=== PATIENT | male | born 1955 ===

== ENCOUNTER 2018-03-18 12:32 | Emergency (ER) | payer OTHER ==
--- NOTE | 2018-03-18 12:47 | ED PDOC ---
HPI: General Adult Time Seen by Provider: 03/18/18 12:47 Chief Complaint (Nursing): Abnormal Skin Integrity Chief Complaint (Provider): rash History Per: Patient Additional Complaint(s): 62 year old male presents with persistent rash secondary to bed bug infestation at home. Patient was seen at [facility] ED for same issue 4 days ago and was given rx 10 mg QD prednisone but this has not helped. He presents to this ED today with persistent rash and pruritus. Patient denies fever or chills. He states that he already switched out his mattress and washed all of his clothing. He denies any more recent exposure. PMD: Dr. Esqueda Past Medical History Reviewed: Historical Data, Nursing Documentation, Vital Signs Vital Signs: Last Vital Signs Temp 98.2 F 03/18/18 12:45 Pulse 66 03/18/18 12:45 Resp 16 03/18/18 12:45 BP 177/94 H 03/18/18 12:45 Pulse Ox 98 03/18/18 12:45 - Medical History PMH: Diabetes, HTN - Family History Family History: States: No Known Family Hx - Living Arrangements Living Arrangements: With Family - Social History Current smoker - smoking cessation education provided: No Alcohol: None Drugs: Denies - Immunization History Hx Tetanus Toxoid Vaccination: Yes - Home Medications Home Medications: Ambulatory Orders Medication Instructions Recorded Amlodipine/Valsartan/Hcthiazid 1 tab PO DAILY 07/15/17 [Exforge Hct 5 mg-25 mg-160 mg] Carvedilol [Coreg CR] 10 mg PO DAILY 07/15/17 GlipiZIDE [Glipizide] 10 mg PO DAILY 07/15/17 MetFORMIN [glucOPHAGE] 1,000 mg PO DAILY 07/15/17 Naproxen [Naprosyn] 1 tab PO BID PRN #20 tab 07/15/17 Acetaminophen with Codeine 1 tab PO Q6 PRN #12 tab 07/18/17 [Tylenol with Codeine No. 3 300 mg-30 mg] DiphenhydrAMINE [Benadryl] 25 mg PO QID #28 cap 03/13/18 Triamcinolone 0.1% [Triamcinolone 0.1 gm TP BID PRN #2 tube 03/13/18 0.1% Cream] predniSONE [Prednisone] 10 mg PO BID #10 tab 03/13/18 Loratadine [Claritin] 10 mg PO DAILY #30 tab 03/18/18 Prednisone 50 mg PO DAILY #6 tablet 03/18/18 - Allergies Allergies/Adverse Reactions: Allergies Allergy/AdvReac Type Severity Reaction Status Date / Time No Known Allergies Allergy Verified 07/18/17 09:39 Review of Systems ROS Statement: Except As Marked, All Systems Reviewed And Found Negative Constitutional: Negative for: Fever, Chills Skin: Positive for: Rash Physical Exam - Reviewed Nursing Documentation Reviewed: Yes Vital Signs Reviewed: Yes - Physical Exam Appears: Positive for: Well, Non-toxic, No Acute Distress Skin: Positive for: Normal Color, Rash (Urticarial and vesicular lesions noted to bilateral upper and lower extremities as well as torso.) Eye Exam: Positive for: Normal appearance Cardiovascular/Chest: Positive for: Regular Rate, Rhythm Respiratory: Positive for: Normal Breath Sounds. Negative for: Wheezing, Respiratory Distress Extremity: Positive for: Normal ROM Neurologic/Psych: Positive for: Alert, Oriented - ECG O2 Sat by Pulse Oximetry: 98 Pulse Ox Interpretation: Normal Medical Decision Making Medical Decision Makin62 y/o male with allergic rash Plan: IM solumedrol IM benadryl Patient given higher dose of prednisone. He was also given prescription for Claritin. Patient was advised to follow-up with primary doctor in 2-3 days. Disposition - Clinical Impression Clinical Impression: Allergic dermatitis - Patient ED Disposition Is Patient to be Admitted: No Counseled Patient/Family Regarding: Diagnosis, Need For Followup, Rx Given - Disposition Referrals: Dheeraj BOWLING,Trudy Alva PA-C [Physician Automobile Inspector] - Disposition: Routine/Home Disposition Time: 13:23 Condition: STABLE Additional Instructions: Take prescription meds as directed. Follow-up with primary doctor in 2-3 days. Prescriptions: Loratadine [Claritin] 10 mg PO DAILY #30 tab Prednisone 50 mg PO DAILY #6 tablet Instructions: Contact Dermatitis (DC) Forms: [employer] (Ecuadorean)
[2018-03-18 12:50] VITALS: BP 177/94; PULSE 66; RESP 16; TEMP 98.2; O2SAT 98
[2018-03-18] MEDS ORDERED: DiphenhydrAMINE 50 mg/ml Inj IM STA (12:57)
[2018-03-18] MEDS ORDERED: DiphenhydrAMINE 50 mg/ml Inj ONE (13:06)
== END 2018-03-18 13:39 | disposition home or self-care (01) ==
LOC: H.ER 12:32
DX: L23.9 Allergic contact dermatitis, unspecified cause (principal); I10 Essential (primary) hypertension; E11.9 Type 2 diabetes mellitus without complications; Z79.84 Long term (current) use of oral hypoglycemic drugs
CPT/HCPCS: 96372; 99282; J1200; J2930

== ENCOUNTER 2018-04-05 21:00 | Emergency (ER) | payer SELFPAY ==
[2018-04-05] MEDS ORDERED: Sodium Chloride 0.9% 1,000 ML IV STA (22:21)
--- NOTE | 2018-04-05 22:47 | ED PDOC ---
HPI: Male Pain Time Seen by Provider: 04/05/18 21:57 Chief Complaint (Nursing): Male Genitourinary Chief Complaint (Provider): Male Genitourinary History Per: Patient History/Exam Limitations: no limitations Onset/Duration Of Symptoms: Days (x1) Current Symptoms Are (Timing): Still Present Additional Complaint(s): 62 year old male presents to the ED for evaluation of increasing abdominal and back pain for the last 24 hours associated with being unable to urinate. He states a small bit of urine did come out, but it was very dark (non-bloody) and abnormal. Pt reports the pain being so severe that it hurts to lay flat, sit, or stand. Otherwise denies previous prostate problems, fever, numbness to legs, diarrhea, fecal incontinence, and rash. PMD: Dheeraj Past Medical History Reviewed: Historical Data, Nursing Documentation, Vital Signs Vital Signs: Last Vital Signs Temp 99.4 F 04/05/18 21:21 Pulse 92 H 04/05/18 21:21 Resp 22 04/05/18 21:21 BP 174/91 H 04/05/18 21:21 Pulse Ox 99 04/05/18 21:21 - Medical History PMH: CAD, Diabetes, HTN Other PMH: Myocardial infarction - Surgical History Surgical History: No Surg Hx - Family History Family History: States: Unknown Family Hx - Social History Current smoker - smoking cessation education provided: No Alcohol: None Drugs: Denies - Immunization History Hx Tetanus Toxoid Vaccination: Yes Hx Influenza Vaccination: No Hx Pneumococcal Vaccination: No - Home Medications Home Medications: Ambulatory Orders Medication Instructions Recorded MetFORMIN [glucOPHAGE] 1,000 mg PO DAILY 07/15/17 Amlodipine/Valsartan [Exforge 1 tab PO DAILY 04/07/18 10-320 mg Tablet] Carvedilol [Coreg] 25 mg PO Q12 04/07/18 Glipizide [Glipizide ER] 10 mg PO DAILY 04/07/18 - Allergies Allergies/Adverse Reactions: Allergies Allergy/AdvReac Type Severity Reaction Status Date / Time No Known Allergies Allergy Verified 04/07/18 09:05 Review of Systems ROS Statement: Except As Marked, All Systems Reviewed And Found Negative Constitutional: Negative for: Fever Gastrointestinal: Positive for: Abdominal Pain. Negative for: Diarrhea Genitourinary Male: Positive for: Other (unable to urinate). Negative for: Incontinence (fecal), Rash Musculoskeletal: Positive for: Back Pain Neurological: Negative for: Numbness (in legs) Physical Exam - Reviewed Nursing Documentation Reviewed: Yes Vital Signs Reviewed: Yes - Physical Exam Appears: Positive for: No Acute Distress Head Exam: Positive for: ATRAUMATIC, NORMOCEPHALIC Skin: Positive for: Normal Color. Negative for: Rash Eye Exam: Positive for: Normal appearance ENT: Positive for: Normal ENT Inspection Neck: Positive for: Normal, Painless ROM, Supple Cardiovascular/Chest: Positive for: Regular Rate, Rhythm Respiratory: Positive for: Normal Breath Sounds. Negative for: Accessory Muscle Use, Respiratory Distress Gastrointestinal/Abdominal: Positive for: Soft, Tenderness (suprapubic) Male Genital Exam: Positive for: other (deferred) Back: Positive for: L CVA Tenderness, R CVA Tenderness. Negative for: Vertebral Tenderness Extremity: Positive for: Normal ROM Neurologic/Psych: Positive for: Alert, sales service supervisor II-XII (grossly intact), Oriented (x3). Negative for: Motor/Sensory Deficits Comments: Exam limited due to pain - Laboratory Results Result Diagrams: 04/05/18 23:25 04/05/18 23:25 - ECG O2 Sat by Pulse Oximetry: 99 (RA) Pulse Ox Interpretation: Normal Medical Decision Making Medical Decision Making: Time: 2216 Initial Impression: acute urinary retention Initial Plan: --Immedaite fletcher placement --CMP --VBG --Prostate specific antigen --EKG --CBC with differential --Morphine 4mg IVP --Normal saline IV --Urine culture --UA --Bladder only/ residual urine US --Renal US 2300 Pt signed out to Dr. Madera pending reevaluation Scribe Attestation: Documented by Moriah Angel, acting as a scribe for Mouna Singh MD. Provider Scribe Attestation: All medical record entries made by the Scribe were at my direction and perso bonnie dictated by me. I have reviewed the chart and agree that the record accurately reflects my personal performance of the history, physical exam, medical decision making, and the department course for this patient. I have also personally directed, reviewed, and agree with the discharge instructions and disposition. Disposition - Clinical Impression Clinical Impression: Urinary retention - Disposition Referrals: Nitza Gusman MD [Medical Doctor] - Disposition Time: 23:30 Condition: STABLE Instructions: How to Care for Your Fletcher Catheter, Male, Urinary Retention Forms: [employer] (Uruguayan) Print Language: YAKUT
--- NOTE | 2018-04-05 23:24 | ED PDOC ---
- Laboratory Results Result Diagrams: 04/05/18 23:25 04/05/18 23:25 - ECG O2 Sat by Pulse Oximetry: 99 (RA) Medical Decision Making Medical Decision Makin:00 -Patient endorsed to provider by Dr. Singh, pending labs. 00:35 -Labs reviewed and show no clinically significant abnormalities. Patient will follow up with Dr. Gusman, Diagnosis of urinary retention. Disposition - Clinical Impression Clinical Impression: Urinary retention - POA Present On Arrival: None - Disposition Referrals: Nitza Gusman MD [Medical Doctor] - Disposition: Routine/Home Disposition Time: 00:35 Condition: STABLE Prescriptions: Ciprofloxacin [Cipro] 500 mg PO Q12 #14 tab Tamsulosin [Flomax] 0.4 mg PO DAILY #10 cap Instructions: How to Care for Your Hull Catheter, Male, Urinary Retention Forms: [employer] (Irish) Print Language: BELARUSIAN
[2018-04-05 23:29] LABS: BASO # 0.1 K/uL (0.0-0.2); BASO % 0.5 % (0.0-2.0); EOS # 0.4 K/uL (0.0-0.7); EOS % 3.1 % (0.0-4.0); HEMOGLOBIN 14.7 g/dL (12.0-18.0); LYMPH # 1.2 K/uL (1.0-4.3); MEAN CELL VOLUME 86.1 fl (80.0-94.0); MEAN CORPUSCULAR HEMOGLOBIN 29.7 pg (27.0-31.0); MEAN CORPUSCULAR HGB CONC 34.5 g/dL (33.0-37.0); MEAN PLATELET VOLUME 9.4 fl (7.2-11.7); MONO % 7.8 % (0.0-10.0); NEUT # 10.6 K/uL (1.8-7.0); NEUT % 79.6 % (50.0-75.0); NRBC % 0.1 % (0.0-0.0); PLATELET COUNT 186 K/uL (130-400); RBC 4.95 Mil/uL (4.40-5.90); RED CELL DISTRIBUTION WIDTH 13.9 % (11.5-14.5); WHITE BLOOD COUNT 13.4 K/uL (4.8-10.8)
[2018-04-05 23:32] LABS: URINE BACTERIA RARE (<OCC); URINE BILIRUBIN NEGATIVE (NEGATIVE); URINE BLOOD NEGATIVE (NEGATIVE); URINE CLARITY SLIGHTY-CLOUDY (Clear); URINE COLOR YELLOW (YELLOW); URINE GLUCOSE (UA) >=500 mg/dL (Normal); URINE LEUKOCYTE ESTERASE NEG Leu/uL (Negative); URINE PROTEIN 30 mg/dL (NEGATIVE); URINE UROBILINOGEN 0.2-1.0 mg/dL (0.2-1.0)
[2018-04-05 23:34] LABS: VENOUS BLOOD GAS BASE EXCESS 3.4 mmol/L (0.0-2.0); VENOUS BLOOD GAS PCO2 44 mmHg (40-60); VENOUS BLOOD GAS PO2 53 mm/Hg (30-55); VENOUS BLOOD PH 7.42 (7.32-7.43)
[2018-04-05 23:40] LABS: ALB/GLOB RATIO 1.1 (1.0-2.1); ALBUMIN 3.6 g/dL (3.5-5.0); ALT/SGPT 40 U/L (21-72); AST/SGOT 19 U/L (17-59); BLOOD UREA NITROGEN 11 mg/dl (9-20); CALCIUM 9.2 mg/dL (8.4-10.2); GFR NON-AFRICAN AMERICAN > 60
[2018-04-05] MEDS ORDERED: Morphine 4 MG/ML VIAL ONE (23:41)
[2018-04-06 03:04] LABS: ANISOCYTOSIS SLIGHT; EOSINOPHIL 1 % (0-7); LYMPHOCYTE 11 % (20-50); MONOCYTE 7 % (0-10); NEUTROPHIL 79 % (42-75); PLATELET ESTIMATE NORMAL (NORMAL); REACTIVE LYMPHOCYTES 2 % (0-0); TOTAL CELLS COUNTED 100
[2018-04-06 04:20] VITALS: BP 155/79; PULSE 85; RESP 18; TEMP 98.7
[2018-04-06 06:06] VITALS: O2SAT 99
--- NOTE | 2018-04-06 07:53 | CARD ---
APPROVED REPORT Date of service: 04/06/2018 EKG Measurement Heart [id number] <Conclusion> Normal sinus rhythm Minimal voltage criteria for LVH, may be normal variant Borderline ECG
--- NOTE | 2018-04-06 10:46 | US ---
Date of service: 04/05/2018 PROCEDURE: Ultrasound of the Kidneys HISTORY: urinary retention COMPARISON: None available. TECHNIQUE: Sonogram of the kidneys. FINDINGS: RIGHT KIDNEY: Measures: 12.6 cm. Normal in size, contour and echogenicity. No stone, solid mass lesion or hydronephrosis visualized. LEFT KIDNEY: Measures: 13.3 cm. Normal in size, contour and echogenicity. Exophytic lower pole cortical cyst, 1.6 x 1.9 x 2.5 cm. No solid mass. No calculus or hydronephrosis. OTHER FINDINGS: None. IMPRESSION: 2.5 cm left lower pole renal cortical cyst. Otherwise unremarkable examination.
== END 2018-04-06 01:00 | disposition home or self-care (01) ==
LOC: H.ER 21:00
DX: R33.9 Retention of urine, unspecified (principal); E11.9 Type 2 diabetes mellitus without complications; Z79.84 Long term (current) use of oral hypoglycemic drugs; I10 Essential (primary) hypertension; I25.10 Atherosclerotic heart disease of native coronary artery without angina pectoris; I25.2 Old myocardial infarction; Z79.899 Other long term (current) drug therapy
CPT/HCPCS: 76770; 80053; 81003; 82803; 84153; 85025; 87086; 93005; 96374; 99285; J2270; J7030

== ENCOUNTER 2018-04-07 08:31 | Inpatient (IN) | payer SELFPAY ==
[2018-04-07 08:34] VITALS: BMI 32.5
--- NOTE | 2018-04-07 10:16 | ED PDOC ---
HPI: Male Pain Time Seen by Provider: 04/07/18 09:05 Chief Complaint (Nursing): Male Genitourinary Chief Complaint (Provider): Male Genitourinary History Per: Patient History/Exam Limitations: no limitations Onset/Duration Of Symptoms: Days (7) Associated Symptoms: denies: Nausea, Vomiting Additional Complaint(s): 62 years old male with history of urinary retention, hypertension and diabetes presents to ER for evaluation of pain to anal rectum area onset 6 days ago. Patient reports he was here [address] a fletcher catheter. He states he cannot sit on his buttock. Patient reports taking MetFormin for diabetes and Coreg for hypertension. He denies any nausea or vomiting. PMD: non provided Past Medical History Reviewed: Historical Data, Nursing Documentation, Vital Signs Vital Signs: Last Vital Signs Temp 98.5 F 04/07/18 08:33 Pulse 89 04/07/18 08:33 Resp 17 04/07/18 08:33 BP 182/92 H 04/07/18 08:33 Pulse Ox 100 04/07/18 08:33 - Medical History PMH: CAD, Diabetes, HTN Denies: Chronic Kidney Disease Other PMH: Urinary Retention - Surgical History Surgical History: No Surg Hx - Family History Family History: States: Unknown Family Hx - Social History Current smoker - smoking cessation education provided: No Alcohol: None Drugs: Denies - Immunization History Hx Tetanus Toxoid Vaccination: Yes Hx Influenza Vaccination: No Hx Pneumococcal Vaccination: No - Home Medications Home Medications: Ambulatory Orders Medication Instructions Recorded Amlodipine/Valsartan/Hcthiazid 1 tab PO DAILY 07/15/17 [Exforge Hct 5 mg-25 mg-160 mg] Carvedilol [Coreg CR] 10 mg PO DAILY 07/15/17 GlipiZIDE [Glipizide] 10 mg PO DAILY 07/15/17 MetFORMIN [glucOPHAGE] 1,000 mg PO DAILY 07/15/17 Naproxen [Naprosyn] 1 tab PO BID PRN #20 tab 07/15/17 Acetaminophen with Codeine 1 tab PO Q6 PRN #12 tab 07/18/17 [Tylenol with Codeine No. 3 300 mg-30 mg] DiphenhydrAMINE [Benadryl] 25 mg PO QID #28 cap 03/13/18 Triamcinolone 0.1% [Triamcinolone 0.1 gm TP BID PRN #2 tube 03/13/18 0.1% Cream] predniSONE [Prednisone] 10 mg PO BID #10 tab 03/13/18 Loratadine [Claritin] 10 mg PO DAILY #30 tab 03/18/18 Prednisone 50 mg PO DAILY #6 tablet 03/18/18 Ciprofloxacin [Cipro] 500 mg PO Q12 #14 tab 04/06/18 Tamsulosin [Flomax] 0.4 mg PO DAILY #10 cap 04/06/18 - Allergies Allergies/Adverse Reactions: Allergies Allergy/AdvReac Type Severity Reaction Status Date / Time No Known Allergies Allergy Verified 04/07/18 09:05 Review of Systems ROS Statement: Except As Marked, All Systems Reviewed And Found Negative Gastrointestinal: Negative for: Nausea, Vomiting Genitourinary Male: Positive for: Other (Anal rectum pain) Physical Exam - Reviewed Nursing Documentation Reviewed: Yes Vital Signs Reviewed: Yes - Physical Exam Appears: Positive for: Non-toxic, No Acute Distress Gastrointestinal/Abdominal: Positive for: Normal Exam, Soft. Negative for: Ten derness Male Genital Exam: Positive for: other (Tenderness of perineal area at 9 o'clock position. Rectal external hemorrhoids. Several piles. No flame) Neurologic/Psych: Positive for: Alert, Oriented (x3) - Laboratory Results Result Diagrams: 04/07/18 10:40 04/07/18 10:40 - ECG O2 Sat by Pulse Oximetry: 100 (RA) Pulse Ox Interpretation: Normal Medical Decision Making Medical Decision Making: Time: 1009 Initial Plan: --CT pelvis w/o contrast --CMP --Surgery consultation --CBC --Iohexol 50 ml PO ----- Scribe Attestation: Documented by Stacy Gooden, acting as a scribe for Sara Ramirez MD. Provider Scribe Attestation: All medical record entries made by the Scribe were at my direction and personally dictated by me. I have reviewed the chart and agree that the record accurately reflects my personal performance of the history, physical exam, medical decision making, and the department course for this patient. I have also personally directed, reviewed, and agree with the discharge instructions and disposition. Per neurosurgical nurse practitioner patient needs to be admitted for I&D in the OR tomorrow. Case d/c Dr. Ivan Disposition - Clinical Impression Clinical Impression: Perirectal abscess, Diabetes, Urinary obstruction - Patient ED Disposition Is Patient to be Admitted: Yes Doctor Will See Patient In The: Hospital Counseled Patient/Family Regarding: Diagnosis - Disposition Disposition: Transfer of Care Disposition Time: 13:05 Condition: FAIR Forms: [employer] (Mongolian) - Pt Status Changed To: Hospital Disposition Of: Inpatient - Admit Certification Admit to Inpatient:: After my assessment, the patient will require hospitalization for at least two midnights. This is because of the severity of symptoms shown, intensity of services needed, and/or the medical risk in this patient being treated as an outpatient. - POA Present On Arrival: None
[2018-04-07] MEDS ORDERED: Iohexol 240 (50 ml) PO ONE (10:25)
[2018-04-07] MEDS ORDERED: Iohexol 240 (50 ml) ONE (10:50)
[2018-04-07 11:00] LABS: BASO % 0.2 % (0.0-2.0); EOS # 0.3 K/uL (0.0-0.7); EOS % 2.9 % (0.0-4.0); HEMOGLOBIN 14.6 g/dL (12.0-18.0); MEAN CELL VOLUME 86.6 fl (80.0-94.0); MEAN CORPUSCULAR HEMOGLOBIN 29.7 pg (27.0-31.0); MEAN CORPUSCULAR HGB CONC 34.3 g/dL (33.0-37.0); MEAN PLATELET VOLUME 8.9 fl (7.2-11.7); MONO # 0.9 K/uL (0.0-0.8); MONO % 7.9 % (0.0-10.0); NEUT # 8.8 K/uL (1.8-7.0); RBC 4.93 Mil/uL (4.40-5.90); RED CELL DISTRIBUTION WIDTH 13.5 % (11.5-14.5)
--- NOTE | 2018-04-07 11:20 | CP.PCM.CON ---
<Deisy Gaytan - Last Filed: 04/07/18 11:26> History of Present Illness - History of Present Illness History of Present Illness: GENERAL SURGERY CONSULT NOTE FOR DR. BREWSTER 62yo M with PMHx of DM, HTN, [place] presents to the ED with rectal pain. The pain began on Tuesday and extends to his right gluteal area. He also feels swelling on the right side and warmth. He denies fever or chills. No BM past few days but prior to that his BMs were non bloody. Of note, pt was seen in the ED on Tuesday for urinary retention and a Hull was placed. PMHx: DM, HTN, [place] 10 years ago Surgeries: laparoscoipc hernia repair, Right thumb, Left hip replacement Allergies: none Medications: ASA, Coreg, Metformin Review of Systems - Review of Systems All systems: reviewed and no additional remarkable complaints except (as per HPI) Past Patient History - Infectious Disease Hx of Infectious Diseases: None - Past Social History Alcohol: None Drugs: Denies - CARDIAC Hx Hypertension: Yes - PULMONARY Hx Respiratory Disorders: No - NEUROLOGICAL Hx Neurological Disorder: No - HEENT Hx HEENT Problems: No - RENAL Hx Chronic Kidney Disease: No - ENDOCRINE/METABOLIC Hx Endocrine Disorders: Yes Hx Diabetes Mellitus Type 2: Yes - HEMATOLOGICAL/ONCOLOGICAL Hx Blood Disorders: No - INTEGUMENTARY Hx Dermatological Problems: No - MUSCULOSKELETAL/RHEUMATOLOGICAL Hx Musculoskeletal Disorders: No - GASTROINTESTINAL Hx Gastrointestinal Disorders: No - GENITOURINARY/GYNECOLOGICAL Hx Genitourinary Disorders: Yes Hx Prostate Problems: Yes - PSYCHIATRIC Hx Psychophysiologic Disorder: No Hx Substance Use: No - SURGICAL HISTORY Hx Surgeries: Yes Hx Musculoskeletal Surgery: Yes (Rt thumb) Hx Orthopedic Surgery: Yes (LEFT THR) - ANESTHESIA Hx Anesthesia: Yes Hx Anesthesia Reactions: No Meds Allergies/Adverse Reactions: Allergies Allergy/AdvReac Type Severity Reaction Status Date / Time No Known Allergies Allergy Verified 04/07/18 09:05 Physical Exam - Constitutional Appears: Well, Non-toxic, No Acute Distress - Head Exam Head Exam: ATRAUMATIC, NORMAL INSPECTION - Eye Exam Eye Exam: EOMI, Normal appearance - Respiratory Exam Respiratory Exam: NORMAL BREATHING PATTERN. absent: Respiratory Distress - Cardiovascular Exam Cardiovascular Exam: +S1, +S2 - GI/Abdominal Exam GI & Abdominal Exam: Soft. absent: Distended, Firm, Guarding, Rebound, Rigid, Tenderness - Rectal Exam Additional comments: external hermorrhoids tenderness to right daniel-rectal area fullness to right daniel-rectal area - Neurological Exam Neurological exam: Alert, CN II-XII Intact, Oriented x3 - Psychiatric Exam Psychiatric exam: Normal Affect, Normal Mood - Skin Skin Exam: Dry, Normal Color, Warm Results - Vital Signs Recent Vital Signs: Last Vital Signs Temp 98.5 F 04/07/18 08:33 Pulse 89 04/07/18 08:33 Resp 17 04/07/18 08:33 BP 182/92 H 04/07/18 08:33 Pulse Ox 100 04/07/18 10:30 - Labs Result Diagrams: 04/07/18 10:40 04/07/18 10:40 Labs: Laboratory Results - last 24 hr 04/07/18 10:40 WBC 11.0 H RBC 4.93 Hgb 14.6 Hct 42.7 MCV 86.6 MCH 29.7 MCHC 34.3 RDW 13.5 Plt Count 185 MPV 8.9 Neut % (Auto) 80.0 H Lymph % (Auto) 9.0 L Josephine % (Auto) 7.9 Eos % (Auto) 2.9 Baso % (Auto) 0.2 Neut # (Auto) 8.8 H Lymph # (Auto) 1.0 Josephine # (Auto) 0.9 H Eos # (Auto) 0.3 Baso # (Auto) 0.0 Assessment & Plan - Assessment and Plan (Free Text) Assessment: 62yo M with PMHx of DM, HTN, [place] presents to the ED with rectal pain - Afebrile, hypertensive in ED - WBC 11 - CT pending - Management pending CT findings - Discussed plan with Dr. Narcisa Gaytan PGY-4 <Sam Brewster - Last Filed: 04/07/18 11:37> History of Present Illness - History of Present Illness History of Present Illness: Patient was seen and examined at the bedside. Agree with resident's note above. Results - Vital Signs Recent Vital Signs: Last Vital Signs Temp 98.5 F 04/07/18 08:33 Pulse 89 04/07/18 08:33 Resp 17 04/07/18 08:33 BP 182/92 H 04/07/18 08:33 Pulse Ox 100 04/07/18 10:30 - Labs Result Diagrams: 04/07/18 10:40 04/07/18 10:40 Labs: Laboratory Results - last 24 hr 04/07/18 04/07/18 10:40 10:40 WBC 11.0 H RBC 4.93 Hgb 14.6 Hct 42.7 MCV 86.6 MCH 29.7 MCHC 34.3 RDW 13.5 Plt Count 185 MPV 8.9 Neut % (Auto) 80.0 H Lymph % (Auto) 9.0 L Josephine % (Auto) 7.9 Eos % (Auto) 2.9 Baso % (Auto) 0.2 Neut # (Auto) 8.8 H Lymph # (Auto) 1.0 Josephine # (Auto) 0.9 H Eos # (Auto) 0.3 Baso # (Auto) 0.0 Sodium 136 Potassium 4.7 Chloride 99 Carbon Dioxide 33 H Anion Gap 9 L BUN 9 Creatinine 0.6 L Est GFR ( Amer) > 60 Est GFR (Non-Af Amer) > 60 Random Glucose 343 H Calcium 9.3 Total Bilirubin 0.6 AST 19 ALT 36 Alkaline Phosphatase 122 Total Protein 6.9 Albumin 3.6 Globulin 3.3 Albumin/Globulin Ratio 1.1
[2018-04-07 11:23] LABS: ALB/GLOB RATIO 1.1 (1.0-2.1); ALBUMIN 3.6 g/dL (3.5-5.0); ALT/SGPT 36 U/L (21-72); AST/SGOT 19 U/L (17-59); BLOOD UREA NITROGEN 9 mg/dl (9-20); CALCIUM 9.3 mg/dL (8.4-10.2); GFR NON-AFRICAN AMERICAN > 60
[2018-04-07] MEDS ORDERED: Sodium Chloride 0.9% 50 ML IV ONE (12:15)
[2018-04-07] MEDS ORDERED: Iohexol 300 100 ML IJ ONE (12:15)
--- NOTE | 2018-04-07 13:23 | CT ---
Date of service: 04/07/2018 PROCEDURE: CT pelvis HISTORY: perirectal pain/tenderness COMPARISON: Not available TECHNIQUE: 2.5 mm contiguous axial sections were acquired through the pelvis, from the lower abdomen through the perineum. Sagittal and coronal images were reformatted from the axial scan. Contrast administered: 99 cc Omnipaque 300. Total exam DLP: 98.48 mGy-cm This CT exam was performed using 1 or more of the following dose reduction techniques: Automated exposure control, adjustment of the mA and/or kV according to patient size, and/or use of iterative reconstruction technique. FINDINGS: There is a multilocular perianal low-density collection consistent with abscess. The most clearly defined portion of this measures roughly 1.9 x 1.9 x 2.2 cm. However, the overall collection is somewhat complex. There is stranding of the perianal fat on the right side of the anal rectal complex. There is cellulitis involving the right gluteus and gluteal cleft with thickening of the skin and extensive stranding and edema of the subcutaneous fat. The prostate is enlarged, measuring approximately 6.6 cm transversely. The urinary bladder is decompressed around a Hull catheter balloon. There are no abnormal bowel loops identified. A normal appendix is identified. There is no ascites. There is no lymphadenopathy. The patient is status post left hip arthroplasty. There is no acute osseous fracture. IMPRESSION: Perianal abscess. Right gluteal cellulitis.
[2018-04-07] MEDS ORDERED: Oxycodone/Acetaminophen 5/325 mg Tab ONE (14:07)
[2018-04-07] MEDS ORDERED: Piperacillin/Tazobact 3.375 gm Inj IVPB ONE (14:08)
--- NOTE | 2018-04-07 14:20 | CP.PCM.HP ---
Addendum entered and electronically signed by Swathi Ivan MD 04/07/18 20:23: Patient was seen and examined bedside . All chart and clinical data reviewed .Agree with resident assessment and plan 62 y/o male with PMH DM , HTN , recent urinary retention with indwelling ca theter for the past 3 days presented to ER with perirectal pain and discomfort CT pelvis showed cellulitis and 1.9x1.9X2.2 cm Admitted for 1. cellulitis with perirectal abscess and surgery consulted s/p I& D bedside by surgery with packing Will follow up blood and wound cultures Will give 1 dose Vanco IV and will continue with Zosyn Pain management PRN surgery on consult 2. Urinary retention -- most likely secondary to BPH . CT pelvis showed enlarged prostate 6.6 cm . will start Flomax and start Bladder training Will need to follow up with urologist as outpatient 3. DM type II- Hold Metformin for 48 hours since patient received contrast Continue Accuchecks, lispro low dose coverage , diabetic diet and glucotrol Check Hgb A1c , lipid panel 4. HTN - chronic , controlled.On Coreg and exforge 5. Azotemia-- continue IVF 6. DVt prophylaxis-- SCD and lovenox Original Note: History of Present Illness - History of Present Illness History of Present Illness: This is 62 y/o F with PMH of HTN and DM admitted to [facility] for evaluation and stacy atment of perianal abscess and righ gluteal cellulitis. Patient came to the ER this morning c/o worsening daniel-rectal pain for 6 days. Patient reports his pain started last Tuesday, denies any trauma, fever, chills, nausea, vomiting, diarrhea or constipation. Patient reports 10/10 pain, non-radiating, sharp in nature, advil/motrin helped somewhat with pain, aggravated by walking, urination and BM. Patient reports no BM since 4 days. Patient reports he came to the ER last Tuesday for pain with urination and discharged home with fletcher. Patient denies any chest pain, SOB, dizziness, palpitations, abdominal pain, or weakness. PMD: Dr. Esqueda PMH: HTN, NIDDM II PSH: Hip replacement 7 years ago, laparoscoipc hernia repair Allg: Denies Meds: Metformin, Glipizide, Coreg, Exforge FH: Strong family history of DM and HTN SH: Denies any alcohol, smoking or drug use ROS: As per HPI ED Course: VS: 98.5 Tm, PP 89, 17, 182/92, Spo2 100% CBC: Significant for WBC 11 CMP: Significant for CO2 33, anion gap 9 CT pelvis: perianal abscess and righ gluteal cellulitis Surgery consulted S/p Toradol, Iohexol Present on Admission - Present on Admission Any Indicators Present on Admission: No Past Patient History - Infectious Disease Hx of Infectious Diseases: None - Past Social History Alcohol: None Drugs: Denies - CARDIAC Hx Hypertension: Yes - PULMONARY Hx Respiratory Disorders: No - NEUROLOGICAL Hx Neurological Disorder: No - HEENT Hx HEENT Problems: No - RENAL Hx Chronic Kidney Disease: No - ENDOCRINE/METABOLIC Hx Endocrine Disorders: Yes Hx Diabetes Mellitus Type 2: Yes - HEMATOLOGICAL/ONCOLOGICAL Hx Blood Disorders: No - INTEGUMENTARY Hx Dermatological Problems: No - MUSCULOSKELETAL/RHEUMATOLOGICAL Hx Musculoskeletal Disorders: No - GASTROINTESTINAL Hx Gastrointestinal Disorders: No - GENITOURINARY/GYNECOLOGICAL Hx Genitourinary Disorders: Yes Hx Prostate Problems: Yes - PSYCHIATRIC Hx Psychophysiologic Disorder: No Hx Substance Use: No - SURGICAL HISTORY Hx Surgeries: Yes Hx Musculoskeletal Surgery: Yes (Rt thumb) Hx Orthopedic Surgery: Yes (LEFT THR) - ANESTHESIA Hx Anesthesia: Yes Hx Anesthesia Reactions: No Meds Allergies/Adverse Reactions: Allergies Allergy/AdvReac Type Severity Reaction Status Date / Time No Known Allergies Allergy Verified 04/07/18 09:05 Physical Exam - Constitutional Appears: No Acute Distress - Head Exam Head Exam: NORMAL INSPECTION - Eye Exam Eye Exam: Normal appearance, PERRL Pupil Exam: NORMAL ACCOMODATION - ENT Exam ENT Exam: Mucous Membranes Moist - Neck Exam Neck exam: Positive for: Normal Inspection - Respiratory Exam Respiratory Exam: Clear to Auscultation Bilateral, NORMAL BREATHING PATTERN. absent: Accessory Muscle Use, Decreased Breath Sounds - Cardiovascular Exam Cardiovascular Exam: REGULAR RHYTHM, +S1, +S2 - GI/Abdominal Exam GI & Abdominal Exam: Normal Bowel Sounds, Soft. absent: Tenderness - Rectal Exam Rectal Exam: Hemorrhoids Additional comments: Severe tenderness to right daniel-rectal area with enduration and mild erythema - Extremities Exam Extremities exam: Positive for: normal inspection - Back Exam Back exam: absent: CVA tenderness (L), CVA tenderness (R) - Neurological Exam Neurological exam: Alert, CN II-XII Intact, Oriented x3 - Psychiatric Exam Psychiatric exam: Normal Affect - Skin Skin Exam: Normal Color Results - Vital Signs Recent Vital Signs: Last Vital Signs Temp 98.5 F 04/07/18 08:33 Pulse 89 04/07/18 08:33 Resp 17 04/07/18 08:33 BP 182/92 H 04/07/18 08:33 Pulse Ox 100 04/07/18 13:38 - Labs Result Diagrams: 04/07/18 10:40 04/07/18 10:40 Labs: Laboratory Results - last 24 hr 04/07/18 04/07/18 10:40 10:40 WBC 11.0 H RBC 4.93 Hgb 14.6 Hct 42.7 MCV 86.6 MCH 29.7 MCHC 34.3 RDW 13.5 Plt Count 185 MPV 8.9 Neut % (Auto) 80.0 H Lymph % (Auto) 9.0 L Frio % (Auto) 7.9 Eos % (Auto) 2.9 Baso % (Auto) 0.2 Neut # (Auto) 8.8 H Lymph # (Auto) 1.0 Frio # (Auto) 0.9 H Eos # (Auto) 0.3 Baso # (Auto) 0.0 Sodium 136 Potassium 4.7 Chloride 99 Carbon Dioxide 33 H Anion Gap 9 L BUN 9 Creatinine 0.6 L Est GFR ( Amer) > 60 Est GFR (Non-Af Amer) > 60 Random Glucose 343 H Calcium 9.3 Total Bilirubin 0.6 AST 19 ALT 36 Alkaline Phosphatase 122 Total Protein 6.9 Albumin 3.6 Globulin 3.3 Albumin/Globulin Ratio 1.1 Assessment & Plan - Assessment and Plan (Free Text) Assessment: A/P: This is 62 y/o F with PMH of HTN and DM admitted to [facility] for evaluation and treatment of perianal abscess and right gluteal cellulitis. Perianal Abscess and Right Gluteal Cellulitis - Afebrile - CT pelvis: perianal abscess and right gluteal cellulitis - Surgery, Dr. Jimenez, follow up recommendations - Possible I&D - Pain management: Percocet - C/w Zosyn Hypertension - Chronic, controlled - C/w home medications: Coreg, Exforge NIDDM-II - Chronic, Uncontrolled - C/w home medications: Metformin, Glipizide - AccuChecks - Moderate Sliding scale DVT PPx - SCD - Lovenox HS from tomorrow
[2018-04-07] MEDS: Oxycodone/Acetaminophen 5/325 mg Tab PO PRN (14:32)
[2018-04-07] MEDS ORDERED: Lidocaine 2% Inj (20ml) SC STA (14:43)
[2018-04-07] MEDS: Piperacillin/Tazobact 3.375 GM in Sodium Chloride 0.9% 100 ML IVPB SCH ×2 (14:43→22:53)
[2018-04-07] MEDS ORDERED: Lidocaine PF 2% (5 ml) Inj (For Cardiac Arrhy) ONE (14:45)
[2018-04-07] MEDS ORDERED: Dextrose 50% SYRINGE Inj (50 ml) IVP PRN (17:05)
[2018-04-07] MEDS ORDERED: Dextrose 50% SYRINGE Inj (50 ml) IV PRN (17:05)
[2018-04-07] MEDS ORDERED: Glucagon Recombinant 1 mg Inj IM PRN (17:05)
--- NOTE | 2018-04-07 17:33 | PCM.PROC ---
- Incision & Drainage Of Abscess Anesthesia: Lidocaine 2%, IV Sedation (morphine ) Prep Used: Sterile Water, Betadine Procedure: Incised W/Scalpel Blade#: (11), Drained Pus, Irrigated Cavity W/Saline, Probed To Break Up Loculations, Packed W/Gauze, Cultures Obtained And Sent To Lab
[2018-04-07] MEDS: Lactated Ringer's 1,000 ML IV SCH (20:04)
[2018-04-07] MEDS ORDERED: Insulin Lispro (humaLOG) 100 Units/ml Inj SC SCH (22:00)
[2018-04-07] MEDS: Insulin Regular 100 units/ml SC SCH (23:18)
[2018-04-08] MEDS: Oxycodone/Acetaminophen 5/325 mg Tab PO PRN ×3 (01:36→18:29)
[2018-04-08] MEDS: Piperacillin/Tazobact 3.375 GM in Sodium Chloride 0.9% 100 ML IVPB SCH ×4 (04:00→23:00)
[2018-04-08] MEDS: Lactated Ringer's 1,000 ML IV SCH (04:04)
--- NOTE | 2018-04-08 08:07 | CP.PCM.PN ---
Subjective - Date & Time of Evaluation Date of Evaluation: 04/08/18 Time of Evaluation: 08:05 - Subjective Subjective: General Surgery Progress Note for Dr. Jimenez covering for Dr. Brewster 62 year old male seen and evaluated at bedside this morning. Patient had fever last night and was given Tylenol, started on Vancomycin and has remained afebrile since. Pain controlled. Tolerating diet. Ambulating without difficulty. Hull in place secondary to retention. No other complaints at this time. Dressing and packing changed at bedside. Denies chills, nausea, vomiting, shortness of breath, chest pain. Objective - Vital Signs/Intake and Output Vital Signs (last 24 hours): Temp Pulse Resp BP Pulse Ox 9709 F H 64 20 116/67 96 04/08/18 04:03 04/08/18 04:03 04/08/18 04:03 04/08/18 04:03 04/08/18 04:03 - Medications Medications: Current Medications Carvedilol (Coreg) 25 mg PO Q12 [facility] Last Admin: 04/07/18 21:05 Dose: 25 mg Dextrose (Dextrose 50% Inj) 0 ml IV STAT PRN; Protocol PRN Reason: Hypoglycemia Protocol Dextrose (Dextrose 50% Inj) 50 ml IVP ONCE PRN PRN Reason: Hypoglycemia Dextrose (Glutose 15) 0 gm PO ONCE PRN; Protocol PRN Reason: Hypoglycemia Protocol Docusate Sodium (Colace) 100 mg PO DAILY [facility] Last Admin: 04/07/18 18:24 Dose: 100 mg Enoxaparin Sodium (Lovenox) 40 mg SC HS [facility]; Protocol Glipizide (Glucotrol Xl) 10 mg PO DAILY [facility] Glucagon (Glucagen Diagnostic Kit) 0 mg IM STAT PRN; Protocol PRN Reason: Hypoglycemia Protocol Home Med (Amlodipine/Valsartan [Exforge 10-320 Mg Tablet]) 1 tab PO DAILY [facility] Piperacillin Sod/Tazobactam (Sod 3.375 gm/ Sodium Chloride) 100 mls @ 100 mls/ hr IVPB Q6 [facility]; Protocol Last Admin: 04/08/18 04:00 Dose: 100 mls/hr Lactated Ringer's (Lactated Ringer's) 1,000 mls @ 125 mls/hr IV .Q8H [facility] Last Admin: 04/08/18 04:04 Dose: 125 mls/hr Insulin Human Regular (Humulin R) 0 units SC ACHS [facility]; Protocol Last Admin: 04/07/18 23:18 Dose: 2 units Metformin HCl (Glucophage) 1,000 mg PO DAILY [facility] Oxycodone/Acetaminophen (Percocet 5/325 Mg Tab) 1 tab PO Q4H PRN PRN Reason: Pain, moderate (4-7) Stop: 04/10/18 13:15 Last Admin: 04/08/18 06:12 Dose: 1 tab Tamsulosin HCl (Flomax) 0.4 mg PO DAILY [facility] Last Admin: 04/07/18 19:54 Dose: 0.4 mg - Labs Labs: 04/07/18 10:40 04/07/18 10:40 - Constitutional Appears: Well, Non-toxic, No Acute Distress - Head Exam Head Exam: ATRAUMATIC, NORMAL INSPECTION, NORMOCEPHALIC - Eye Exam Eye Exam: EOMI Pupil Exam: PERRL - ENT Exam ENT Exam: Mucous Membranes Moist - Respiratory Exam Respiratory Exam: Clear to Ausculation Bilateral, NORMAL BREATHING PATTERN - Cardiovascular Exam Cardiovascular Exam: REGULAR RHYTHM, +S1, +S2. absent: Murmur - GI/Abdominal Exam GI & Abdominal Exam: Soft, Normal Bowel Sounds. absent: Tenderness - Rectal Exam Additional comments: Perianal incision slightly erythematous, tender to palpation Packing replaced, dressings applied c/d/i No active drainage noted - Neurological Exam Neurological Exam: Alert, Awake, Oriented x3 - Psychiatric Exam Psychiatric exam: Normal Affect, Normal Mood - Skin Skin Exam: Dry, Intact, Normal Color, Warm Assessment and Plan - Assessment and Plan (Free Text) Assessment: 62M w/ perianal abscess s/p bedside incision and drainage POD1 Plan: -Packing and dressings changed at bedside -Sitz baths -Continue dressing care and local wound care -Continue pain management -Continue IV Abx -Follow up blood/wound cultures -Further recommendations per Dr. Narcisa Hanks PGY1
[2018-04-08 08:32] LABS: BASO % 0.3 % (0.0-2.0); EOS # 0.5 K/uL (0.0-0.7); EOS % 5.4 % (0.0-4.0); HEMOGLOBIN 13.5 g/dL (12.0-18.0); LYMPH # 1.2 K/uL (1.0-4.3); LYMPH % 13.4 % (20.0-40.0); MEAN CELL VOLUME 86.9 fl (80.0-94.0); MEAN CORPUSCULAR HEMOGLOBIN 29.5 pg (27.0-31.0); MEAN CORPUSCULAR HGB CONC 33.9 g/dL (33.0-37.0); MONO % 10.8 % (0.0-10.0); NEUT # 6.3 K/uL (1.8-7.0); NEUT % 70.1 % (50.0-75.0); RBC 4.58 Mil/uL (4.40-5.90); RED CELL DISTRIBUTION WIDTH 13.7 % (11.5-14.5)
[2018-04-08] MEDS ORDERED: Insulin Detemir 100 Units/ml Inj SC STA (08:34)
[2018-04-08] MEDS: Insulin Regular 100 units/ml SC SCH ×4 (08:45→21:44)
[2018-04-08] MEDS: GlipiZIDE 10 mg SR Tab PO SCH (08:46)
[2018-04-08 08:56] LABS: BLOOD UREA NITROGEN 13 mg/dl (9-20); CALCIUM 8.6 mg/dL (8.4-10.2); GFR NON-AFRICAN AMERICAN > 60; HDL CHOLESTEROL 24 MG/DL (30-70)
[2018-04-08] MEDS ORDERED: Patient's Own Med (Amlodipine/Valsartan [Exforge 10-320 Mg Tablet] 1 TAB) PO SCH (09:00)
[2018-04-08 09:01] LABS: LDL CHOLESTEROL 81 mg/dL (0-129)
--- NOTE | 2018-04-08 10:32 | CP.PCM.PN ---
<Korey Lyn - Last Filed: 04/08/18 12:20> Subjective - Date & Time of Evaluation Date of Evaluation: 04/08/18 Time of Evaluation: 08:35 - Subjective Subjective: Patient seen and examined this morning at bedside. S/p Bedside I & D, POD#1, reports pain but well controlled on pain meds, tolerating PO diet, ambulating in room. Reports fever overnight, denies any SOB, chest pain, abdominal pain or weakness. No n/v/d, + Constipation - Bladder training, Hull due to retention Objective - Vital Signs/Intake and Output Vital Signs (last 24 hours): Temp Pulse Resp BP Pulse Ox 98.1 F 64 20 125/73 95 04/08/18 08:30 04/08/18 08:46 04/08/18 08:30 04/08/18 08:46 04/08/18 08:30 - Medications Medications: Current Medications Carvedilol (Coreg) 25 mg PO Q12 [facility] Last Admin: 04/08/18 08:46 Dose: 25 mg Dextrose (Dextrose 50% Inj) 0 ml IV STAT PRN; Protocol PRN Reason: Hypoglycemia Protocol Dextrose (Dextrose 50% Inj) 50 ml IVP ONCE PRN PRN Reason: Hypoglycemia Dextrose (Glutose 15) 0 gm PO ONCE PRN; Protocol PRN Reason: Hypoglycemia Protocol Docusate Sodium (Colace) 100 mg PO DAILY [facility] Last Admin: 04/08/18 08:46 Dose: 100 mg Enoxaparin Sodium (Lovenox) 40 mg SC HS [facility]; Protocol Finasteride (Proscar) 5 mg PO DAILY [facility] Last Admin: 04/08/18 10:10 Dose: 5 mg Glipizide (Glucotrol Xl) 10 mg PO DAILY [facility] Last Admin: 04/08/18 08:46 Dose: 10 mg Glucagon (Glucagen Diagnostic Kit) 0 mg IM STAT PRN; Protocol PRN Reason: Hypoglycemia Protocol Home Med (Amlodipine/Valsartan [Exforge 10-320 Mg Tablet]) 1 tab PO DAILY [facility] Piperacillin Sod/Tazobactam (Sod 3.375 gm/ Sodium Chloride) 100 mls @ 100 mls/hr IVPB Q6 [facility]; Protocol Last Admin: 04/08/18 09:15 Dose: 100 mls/hr Lactated Ringer's (Lactated Ringer's) 1,000 mls @ 125 mls/hr IV .Q8H [facility] Last Admin: 04/08/18 04:04 Dose: 125 mls/hr Vancomycin HCl 1 gm/ Sodium (Chloride) 250 mls @ 166.667 mls/hr IVPB Q12 [facility]; Protocol Last Admin: 04/08/18 10:10 Dose: 166.667 mls/hr Insulin Human Regular (Humulin R) 0 units SC ACHS [facility]; Protocol Last Admin: 04/08/18 08:45 Dose: 6 units Lactulose (Enulose) 20 gm PO Q12 [facility] Last Admin: 04/08/18 10:11 Dose: 20 gm Metformin HCl (Glucophage) 1,000 mg PO DAILY [facility] Oxycodone/Acetaminophen (Percocet 5/325 Mg Tab) 1 tab PO Q4H PRN PRN Reason: Pain, moderate (4-7) Stop: 04/10/18 13:15 Last Admin: 04/08/18 06:12 Dose: 1 tab Tamsulosin HCl (Flomax) 0.4 mg PO DAILY [facility] Last Admin: 04/08/18 08:46 Dose: 0.4 mg - Labs Labs: 04/08/18 07:00 04/08/18 07:00 - Constitutional Appears: No Acute Distress - Head Exam Head Exam: NORMAL INSPECTION - Eye Exam Eye Exam: Normal appearance Pupil Exam: NORMAL ACCOMODATION - ENT Exam ENT Exam: Mucous Membranes Moist - Neck Exam Neck Exam: Full ROM - Respiratory Exam Respiratory Exam: Clear to Ausculation Bilateral, NORMAL BREATHING PATTERN - Cardiovascular Exam Cardiovascular Exam: REGULAR RHYTHM, +S1, +S2 - GI/Abdominal Exam GI & Abdominal Exam: Soft, Normal Bowel Sounds - Rectal Exam Additional comments: S/p I & D, Dressing c/d/i Continue management as per surgery - Extremities Exam Extremities Exam: Full ROM, Normal Capillary Refill, Normal Inspection - Back Exam Back Exam: NORMAL INSPECTION - Neurological Exam Neurological Exam: Alert, Awake, CN II-XII Intact, Oriented x3 - Psychiatric Exam Psychiatric exam: Normal Affect - Skin Skin Exam: Normal Color Assessment and Plan - Assessment and Plan (Free Text) Assessment: A/P: This is 62 y/o F with PMH of HTN and DM admitted to [facility] for evaluation and treatment of perianal abscess and right gluteal cellulitis. Perianal Abscess and Right Gluteal Cellulitis, S/p bedside I & D, POD#1 - Afebrile, Fever overnight - CT pelvis: perianal abscess and right gluteal cellulitis - Surgery, Dr. Jimenez, recommendations appreciated - Pain management: Percocet - C/w Zosyn and Vanco day# 1 - Wound Cx: G+ Cocci, Urinary retention, possibly due to BPH - CT pelvis showed enlarged prostate 6.6 cm - Hull in place, bladder training - Start Flomax 0.4mg daily and Proscar 5mg PO daily Hypertension - Chronic, controlled - C/w home medications: Coreg, Exforge NIDDM-II - Chronic, Uncontrolled - C/w home medications: Metformin (held for 48 hours/CT), C/w Glipizide - AccuChecks - Moderate Sliding scale Constipation, possibly due to pain - Lactulose 20gm PO Q12H DVT PPx - SCD - Lovenox 40mg SC <Kayla Ponce - Last Filed: 04/08/18 16:05> Objective - Vital Signs/Intake and Output Vital Signs (last 24 hours): Temp Pulse Resp BP Pulse Ox 98.1 F 64 20 125/73 95 04/08/18 08:30 04/08/18 08:46 04/08/18 08:30 04/08/18 08:46 04/08/18 08:30 - Medications Medications: Current Medications Carvedilol (Coreg) 25 mg PO Q12 [facility] Last Admin: 04/08/18 08:46 Dose: 25 mg Dextrose (Dextrose 50% Inj) 0 ml IV STAT PRN; Protocol PRN Reason: Hypoglycemia Protocol Dextrose (Dextrose 50% Inj) 50 ml IVP ONCE PRN PRN Reason: Hypoglycemia Dextrose (Glutose 15) 0 gm PO ONCE PRN; Protocol PRN Reason: Hypoglycemia Protocol Docusate Sodium (Colace) 100 mg PO DAILY PRN PRN Reason: Constipation Enoxaparin Sodium (Lovenox) 40 mg SC HS [facility]; Protocol Finasteride (Proscar) 5 mg PO DAILY [facility] Last Admin: 04/08/18 10:10 Dose: 5 mg Glipizide (Glucotrol Xl) 10 mg PO DAILY [facility] Last Admin: 04/08/18 08:46 Dose: 10 mg Glucagon (Glucagen Diagnostic Kit) 0 mg IM STAT PRN; Protocol PRN Reason: Hypoglycemia Protocol Home Med (Amlodipine/Valsartan [Exforge 10-320 Mg Tablet]) 1 tab PO DAILY [facility] Piperacillin Sod/Tazobactam (Sod 3.375 gm/ Sodium Chloride) 100 mls @ 100 mls/hr IVPB Q6 [facility]; Protocol Last Admin: 04/08/18 09:15 Dose: 100 mls/hr Vancomycin HCl 1 gm/ Sodium (Chloride) 250 mls @ 166.667 mls/hr IVPB Q12 [facility]; Protocol Last Admin: 04/08/18 10:10 Dose: 166.667 mls/hr Insulin Human Regular (Humulin R) 0 units SC ACHS [facility]; Protocol Last Admin: 04/08/18 12:15 Dose: 8 units Lactulose (Enulose) 20 gm PO Q12 [facility] Last Admin: 04/08/18 10:11 Dose: 20 gm Metformin HCl (Glucophage) 1,000 mg PO DAILY [facility] Oxycodone/Acetaminophen (Percocet 5/325 Mg Tab) 1 tab PO Q4H PRN PRN Reason: Pain, moderate (4-7) Stop: 04/10/18 13:15 Last Admin: 04/08/18 06:12 Dose: 1 tab Tamsulosin HCl (Flomax) 0.4 mg PO DAILY [facility] Last Admin: 04/08/18 08:46 Dose: 0.4 mg - Labs Labs: 04/08/18 07:00 04/08/18 07:00 Attending/Attestation - Attestation I have personally seen and examined this patient.: Yes I have fully participated in the care of the patient.: Yes I have reviewed all pertinent clinical information, including history, physical exam and plan: Yes
--- NOTE | 2018-04-08 10:51 | CARD ---
APPROVED REPORT Date of service: 04/07/2018 EKG Measurement Heart [id number] <Conclusion> Normal sinus rhythm Minimal voltage criteria for LVH, may be normal variant Borderline ECG
[2018-04-08] MEDS ORDERED: Insulin Detemir 100 Units/ml Inj SC SCH ×2 (22:00)
[2018-04-08] MEDS ORDERED: Enoxaparin 40 mg Syringe SC SCH (22:00)
[2018-04-08] MEDS ORDERED: Calamine/Zinc Oxide LOTION TOP SCH (23:07)
[2018-04-08] MEDS: Calamine/Zinc Oxide LOTION TOP SCH (23:35)
[2018-04-09] MEDS: Piperacillin/Tazobact 3.375 GM in Sodium Chloride 0.9% 100 ML IVPB SCH ×3 (04:44→15:02)
--- NOTE | 2018-04-09 07:46 | CP.PCM.PN ---
Subjective - Date & Time of Evaluation Date of Evaluation: 04/09/18 Time of Evaluation: 07:44 - Subjective Subjective: General Surgery Progress Note for Dr. Jimenez covering for Dr. Narcisa Johnson, PGY-2 Pt S & E at bedside at 0640 Pt reports pain resolved, no problems overnignt. Denies F & C, N & V. Tolerating diet. Ambulating. No acute events overnight. Objective - Vital Signs/Intake and Output Vital Signs (last 24 hours): Temp Pulse Resp BP Pulse Ox 98.2 F 69 18 149/70 98 04/09/18 05:00 04/08/18 23:50 04/08/18 23:50 04/08/18 23:50 04/08/18 23:50 - Medications Medications: Current Medications Calamine (Calamine Lotion) 1 applic TOP TID [facility] Last Admin: 04/08/18 23:35 Dose: 1 applic Carvedilol (Coreg) 25 mg PO Q12 [facility] Last Admin: 04/08/18 21:41 Dose: 25 mg Dextrose (Dextrose 50% Inj) 0 ml IV STAT PRN; Protocol PRN Reason: Hypoglycemia Protocol Dextrose (Dextrose 50% Inj) 50 ml IVP ONCE PRN PRN Reason: Hypoglycemia Dextrose (Glutose 15) 0 gm PO ONCE PRN; Protocol PRN Reason: Hypoglycemia Protocol Docusate Sodium (Colace) 100 mg PO DAILY PRN PRN Reason: Constipation Enoxaparin Sodium (Lovenox) 40 mg SC HS [facility]; Protocol Last Admin: 04/08/18 21:37 Dose: 40 mg Finasteride (Proscar) 5 mg PO DAILY [facility] Last Admin: 04/08/18 10:10 Dose: 5 mg Glipizide (Glucotrol Xl) 10 mg PO DAILY [facility] Last Admin: 04/08/18 08:46 Dose: 10 mg Glucagon (Glucagen Diagnostic Kit) 0 mg IM STAT PRN; Protocol PRN Reason: Hypoglycemia Protocol Home Med (Amlodipine/Valsartan [Exforge 10-320 Mg Tablet]) 1 tab PO DAILY [facility] Piperacillin Sod/Tazobactam (Sod 3.375 gm/ Sodium Chloride) 100 mls @ 100 mls/h r IVPB Q6 [facility]; Protocol Last Admin: 04/09/18 04:44 Dose: 100 mls/hr Vancomycin HCl 1 gm/ Sodium (Chloride) 250 mls @ 166.667 mls/hr IVPB Q12 [facility]; Protocol Last Admin: 04/08/18 21:32 Dose: 166.667 mls/hr Insulin Detemir (Levemir) 12 units SC HS [facility] Last Admin: 04/08/18 21:46 Dose: 12 units Insulin Human Regular (Humulin R) 0 units SC ACHS [facility]; Protocol Last Admin: 04/08/18 21:44 Dose: 3 units Lactulose (Enulose) 20 gm PO Q12 [facility] Last Admin: 04/08/18 21:41 Dose: 20 gm Metformin HCl (Glucophage) 1,000 mg PO DAILY [facility] Oxycodone/Acetaminophen (Percocet 5/325 Mg Tab) 1 tab PO Q4H PRN PRN Reason: Pain, moderate (4-7) Stop: 04/10/18 13:15 Last Admin: 04/08/18 18:29 Dose: 1 tab Tamsulosin HCl (Flomax) 0.4 mg PO DAILY [facility] Last Admin: 04/08/18 08:46 Dose: 0.4 mg - Labs Labs: 04/08/18 07:00 04/08/18 07:00 - Constitutional Appears: Non-toxic, No Acute Distress - Head Exam Head Exam: ATRAUMATIC, NORMAL INSPECTION, NORMOCEPHALIC - Eye Exam Eye Exam: EOMI, Normal appearance - ENT Exam ENT Exam: Mucous Membranes Moist, Normal Exam - Neck Exam Neck Exam: Full ROM, Normal Inspection - Respiratory Exam Respiratory Exam: NORMAL BREATHING PATTERN - Cardiovascular Exam Cardiovascular Exam: REGULAR RHYTHM, +S1, +S2 - GI/Abdominal Exam GI & Abdominal Exam: Soft. absent: Distended, Firm, Guarding, Rigid, Tenderness - Rectal Exam Additional comments: Right gluteal cleft I & D site at approximately 3'oclock position, non tender, no erythema- dressing removed- minimal serous strike through. - Neurological Exam Neurological Exam: Alert, Awake, CN II-XII Intact, Oriented x3 - Psychiatric Exam Psychiatric exam: Normal Affect, Normal Mood - Skin Skin Exam: Dry, Normal Color, Warm Assessment and Plan - Assessment and Plan (Free Text) Assessment: 62M w/ perianal abscess s/p bedside incision and drainage POD#2 Plan: packing removed- no longer needs packing Dressing changed Change dressing PRN Cont pain mgmt IV Abx as per primary Wound cx + for gram neg rods Blood cx neg x 24hrs No further surgical intervention at this time Cleared for d/c home from surgical stand point DW Dr. Tony Johnson, PGY-2
[2018-04-09 08:12] VITALS: BP 155/83; PULSE 71; RESP 19; TEMP 97.4; O2SAT 96
[2018-04-09] MEDS: Oxycodone/Acetaminophen 5/325 mg Tab PO PRN (08:56)
[2018-04-09] MEDS: Calamine/Zinc Oxide LOTION TOP SCH ×3 (08:57→16:14)
[2018-04-09] MEDS: GlipiZIDE 10 mg SR Tab PO SCH (08:58)
[2018-04-09] MEDS: Insulin Regular 100 units/ml SC SCH ×3 (08:58→16:15)
[2018-04-09] MEDS ORDERED: Calamine/Zinc Oxide LOTION TOP SCH (09:00)
[2018-04-09] MEDS ORDERED: Insulin Regular 100 units/ml SC ONE (10:41)
[2018-04-09] MEDS ORDERED: Insulin Detemir 100 Units/ml Inj SC STA (10:42)
--- NOTE | 2018-04-09 12:29 | CP.PCM.DIS ---
Provider - Provider Date of Admission: 04/07/18 13:39 Attending physician: Swathi Ivan MD Consults: Surgery : Dr Jimenez Time Spent in preparation of Discharge (in minutes): 35 Diagnosis - Discharge Diagnosis (1) Perirectal abscess Status: Acute (2) Uncontrolled type 2 diabetes mellitus with hyperglycemia Status: Chronic (3) Urinary retention due to benign prostatic hyperplasia Status: Acute (4) HTN (hypertension) Status: Chronic Hospital Course - Lab Results Lab Results: Micro Results 04/07/18 18:00 Abscess - Anal Gram Stain - Final 04/07/18 18:00 Abscess - Anal Wound Culture - Preliminary Escherichia Coli 04/07/18 14:40 Blood Blood Culture - Preliminary NO GROWTH AFTER 24 HOURS Most Recent Lab Values WBC 9.0 K/uL (4.8-10.8) 04/08/18 07:00 RBC 4.58 Mil/uL (4.40-5.90) 04/08/18 07:00 Hgb 13.5 g/dL (12.0-18.0) 04/08/18 07:00 Hct 39.8 % (35.0-51.0) 04/08/18 07:00 MCV 86.9 fl (80.0-94.0) 04/08/18 07:00 MCH 29.5 pg (27.0-31.0) 04/08/18 07:00 MCHC 33.9 g/dL (33.0-37.0) 04/08/18 07:00 RDW 13.7 % (11.5-14.5) 04/08/18 07:00 Plt Count 173 K/uL (130-400) 04/08/18 07:00 MPV 9.0 fl (7.2-11.7) 04/08/18 07:00 Neut % (Auto) 70.1 % (50.0-75.0) 04/08/18 07:00 Lymph % (Auto) 13.4 % (20.0-40.0) L 04/08/18 07:00 [place] % (Auto) 10.8 % (0.0-10.0) H 04/08/18 07:00 Eos % (Auto) 5.4 % (0.0-4.0) H 04/08/18 07:00 Baso % (Auto) 0.3 % (0.0-2.0) 04/08/18 07:00 Neut # (Auto) 6.3 K/uL (1.8-7.0) 04/08/18 07:00 Lymph # (Auto) 1.2 K/uL (1.0-4.3) 04/08/18 07:00 [place] # (Auto) 1.0 K/uL (0.0-0.8) H 04/08/18 07:00 Eos # (Auto) 0.5 K/uL (0.0-0.7) 04/08/18 07:00 Baso # (Auto) 0.0 K/uL (0.0-0.2) 04/08/18 07:00 Sodium 135 mmol/l (132-148) 04/08/18 07:00 Potassium 4.3 MMOL/L (3.6-5.0) 04/08/18 07:00 Chloride 99 mmol/L (98-107) 04/08/18 07:00 Carbon Dioxide 29 mmol/L (22-30) 04/08/18 07:00 Anion Gap 11 (10-20) 04/08/18 07:00 BUN 13 mg/dl (9-20) 04/08/18 07:00 Creatinine 0.8 mg/dl (0.8-1.5) 04/08/18 07:00 Est GFR ( Amer) > 60 04/08/18 07:00 Est GFR (Non-Af Amer) > 60 04/08/18 07:00 POC Glucose (mg/dL) 291 mg/dL (65-110) H 04/09/18 11:58 Random Glucose 306 mg/dL (75-110) H 04/08/18 07:00 Calcium 8.6 mg/dL (8.4-10.2) 04/08/18 07:00 Total Bilirubin 0.6 mg/dl (0.2-1.3) 04/07/18 10:40 AST 19 U/L (17-59) 04/07/18 10:40 ALT 36 U/L (21-72) 04/07/18 10:40 Alkaline Phosphatase 122 U/L (38-126) 04/07/18 10:40 Total Protein 6.9 G/DL (6.3-8.2) 04/07/18 10:40 Albumin 3.6 g/dL (3.5-5.0) 04/07/18 10:40 Globulin 3.3 gm/dL (2.2-3.9) 04/07/18 10:40 Albumin/Globulin Ratio 1.1 (1.0-2.1) 04/07/18 10:40 Triglycerides 107 mg/DL (0-149) 04/08/18 07:00 Cholesterol 134 mg/dL (0-199) 04/08/18 07:00 LDL Cholesterol Direct 81 mg/dL (0-129) 04/08/18 07:00 HDL Cholesterol 24 MG/DL (30-70) L 04/08/18 07:00 - Hospital Course Hospital Course: This is 62 y/o F with PMH of HTN and DM admitted to [facility] for evaluation and treatment of perianal abscess and right gluteal cellulitis. Perianal Abscess and Right Gluteal Cellulitis, S/p Incision and Drainage - Afebrile. leukocytosis resolved, pain resolved - CT pelvis: perianal abscess and right gluteal cellulitis - Surgery, Dr. Jimenez consulted - I&D done - Pain management: Percocet - received IV Zosyn and Vanco - Wound Cx: E coli - Pt was cleared by Surgery - will d/c pt home on PO Cipro Urinary retention, possibly due to BPH - CT pelvis showed enlarged prostate 6.6 cm - Hull in place, bladder training done , Hull d/c , pt now voiding freely - Start Flomax 0.4mg daily Hypertension - Chronic, controlled - C/w home medications: Coreg , change Exforge to generic Amlodipine NIDDM-II with Hyperglycemia - Chronic, Uncontrolled - C/w home medications: Metformin (held for 48 hours/CT) , increase to 1000mg bid and Glipizide 10 mg - AccuChecks - Moderate Sliding scale - pt refused Insulin , wants to continue with oral hypoglycemics since he lost his insurance - states that he was controlled on PO meds and his accucheck readings were less than 200s just before he came to the hospital Constipation, possibly due to pain - Lactulose 20gm PO Q12H - constipation resolved DVT PPx - SCD - Lovenox 40mg SC Discharge Exam - Head Exam Head Exam: ATRAUMATIC, NORMAL INSPECTION, NORMOCEPHALIC - Eye Exam Eye Exam: EOMI, Normal appearance Pupil Exam: NORMAL ACCOMODATION - ENT Exam ENT Exam: Mucous Membranes Moist, Normal External Ear Exam - Neck Exam Neck exam: Full Rom - Respiratory Exam Respiratory Exam: NORMAL BREATHING PATTERN. absent: Respiratory Distress - Cardiovascular Exam Cardiovascular Exam: REGULAR RHYTHM, +S1, +S2 - GI/Abdominal Exam GI & Abdominal Exam: Normal Bowel Sounds, Soft. absent: Tenderness - Rectal Exam Additional comments: abscess improved - now nontender, packing removed - Extremities Exam Extremities exam: normal capillary refill, pedal pulses present Additional comments: no edema - Back Exam Back exam: FULL ROM. absent: CVA tenderness (L), CVA tenderness (R) - Neurological Exam Neurological exam: Alert, CN II-XII Intact, Normal Gait, Oriented x3, Reflexes Normal - Psychiatric Exam Psychiatric exam: Normal Affect, Normal Mood - Skin Skin Exam: Dry, Normal Color, Warm Additional comments: old hyperpigmented lesions Discharge Plan - Discharge Medications Prescriptions: amLODIPine [Norvasc] 5 mg PO DAILY #30 tab Carvedilol [Coreg] 25 mg PO Q12 #60 tab Ciprofloxacin HCl [Cipro] 500 mg PO BID #60 tab Docusate [Colace] 100 mg PO DAILY PRN #30 cap PRN Reason: Constipation Glipizide [Glipizide ER] 10 mg PO DAILY #30 tab.er.24 MetFORMIN [glucoPHAGE] 1,000 mg PO BID #60 tab Tamsulosin [Flomax] 0.4 mg PO DAILY #30 cap - Follow Up Plan Condition: GOOD Disposition: HOME/ ROUTINE Instructions: Blood Glucose Monitoring, Diabetes and Diet, Abscess (GEN) Additional Instructions: ff up at the Clinic in 1 wk appt with Surgery - Dr Brewster next wk Referrals[facility] [Outside] Sam Brewster MD [Staff Provider] -
[2018-04-09] MEDS ORDERED: Insulin Detemir 100 Units/ml Inj SC SCH (22:00)
== END 2018-04-09 17:25 | disposition home or self-care (01) | DRG 394 ==
LOC: H.ER 08:31 → H.ERHOLD 13:39 → H.MEDSURG1 16:37
PROVIDERS: ADMIT Hospitalist; ATTEND Hospitalist
PROC: 0D9Q3ZZ Drainage of Anus, Percutaneous Approach (ICD-10-PCS; principal; 2018-04-07)
DX: K61.2 Anorectal abscess (principal); L03.317 Cellulitis of buttock; N13.8 Other obstructive and reflux uropathy; K62.89 Other specified diseases of anus and rectum; N40.1 Benign prostatic hyperplasia with lower urinary tract symptoms; R33.8 Other retention of urine; Z79.84 Long term (current) use of oral hypoglycemic drugs; Z82.49 Family history of ischemic heart disease and other diseases of the circulatory system; Z83.3 Family history of diabetes mellitus; Z96.642 Presence of left artificial hip joint; R30.9 Painful micturition, unspecified; R79.89 Other specified abnormal findings of blood chemistry; E11.65 Type 2 diabetes mellitus with hyperglycemia; I10 Essential (primary) hypertension; I25.10 Atherosclerotic heart disease of native coronary artery without angina pectoris; I25.2 Old myocardial infarction; K59.00 Constipation, unspecified